=== PATIENT | female | born 1935 ===

== ENCOUNTER 2021-09-02 07:00 | Inpatient (IN) | payer OTHER ==
[~2021-09-02] VITALS: Ht 152.4 cm; Wt 75.7 kg
[2021-09-02] MEDS ORDERED: FOSAMAX70 MG PO (08:33)
[2021-09-02] MEDS ORDERED: DIOVAN320 MG PO (08:33)
[2021-09-02] MEDS ORDERED: CALCIU PO (08:34)
[2021-09-02] MEDS ORDERED: VITAMIN D310 MCG/1 M PO (08:35)
[2021-09-02] MEDS ORDERED: ASPIRIN PO (08:35)
[2021-09-07] MEDS ORDERED: BIOTIN10 MG (07:56)
[2021-09-07] MEDS ORDERED: ADULT GLYCERIN1 EACH (07:56)
[2021-09-07] MEDS ORDERED: A/F PAIN RELIE500 MG (07:56)
[2021-09-07] MEDS ORDERED: CVS CALCIUM 601 EAC3 (07:57)
[2021-09-07] MEDS ORDERED: PENTOXIFYLLINE400 MG (07:57)
[2021-09-07] MEDS ORDERED: OMEGA 3-6-9 CO400 MG (07:57)
[2021-09-07] MEDS ORDERED: ATORVASTATIN CA10 MG (07:57)
[2021-09-07] MEDS ORDERED: DML FORTE CREA113 GM (07:58)
[2021-09-07] MEDS ORDERED: ST. JOSEPH ASPI81 M2 (07:58)
[2021-09-07] MEDS ORDERED: OPTIMAL D31250 MCG (07:58)
[2021-09-07] MEDS ORDERED: CALCIUM500 M1 (07:59)
[2021-09-07] MEDS ORDERED: CVS CALCIUM 601 EAC2 (07:59)
== END 2021-09-09 20:56 | DRG 470 ==
LOC: SURH 09-07 05:55 → O/R 09-07 05:55 → SURH 09-07 07:00 → EDBD 09-07 07:00 → SURH 09-07 10:54
PROVIDERS: ADMIT Orthopaedic Surgery; ATTEND Orthopaedic Surgery
PROC: 0SRC0J9 Replacement of Right Knee Joint with Synthetic Substitute, Cemented, Open Approach (ICD-10-PCS; principal; 2021-09-07 07:00)
DX: M17.11 Unilateral primary osteoarthritis, right knee (principal); D62 Acute posthemorrhagic anemia; M85.661 Other cyst of bone, right lower leg; I10 Essential (primary) hypertension; E66.8 Other obesity; Z68.33 Body mass index [BMI] 33.0-33.9, adult